=== PATIENT | female | born 1960 | race Caucasian/White ===

== ENCOUNTER 2023-01-22 20:33 | Emergency (ER) | payer SELFPAY ==
[2023-01-22 20:37] VITALS: BP 134/91; PULSE 64; TEMP 36.9; O2SAT 98
[2023-01-22] MEDS: Ondansetron ODT 4 MG Tablet 8 MG PO (21:15)
--- NOTE | 2023-01-22 21:15 | EDS_ITS ---
HPI History of Present Illness Chief Complaint: Back Informant: patient Narrative Narrative: Patient woke up with pain throughout her left back and her left shoulder 4 days ago. 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 She shows me that she does the same basic motions every time to try to get him in and out of the shower specially, she uses her left arm the most, helping to hold him up at times and move his legs around for him. She had no acute injury that she recalls but woke up in the morning 4 days ago with a severe pain that has been persistent despite taking NSAIDs, Tylenol. Especially in her shoulder, she has diffuse pain feels like it is on the inside, pain with moving overhead, forward flexion, and abduction. No numbness or tingling in her hand or pain radiating there, no pain radiating down the left lower or the right lower extremity. No saddle anesthesia, bowel or bladder dysfunction. Left shoulder pain patient has been having for couple months but it is significantly worse along with her back in the same period of time, the past 4 days or so. [facility] Medical History (Updated 01/22/23 @ 21:28 by Edith Barton) Hypothyroidism Medical History no medical history no medical history Home Medications cyclobenzaprine 10 mg tablet 10 mg PO TID PRN Muscle Spasm #21 TABLETS 01/22/23 [Rx Last Taken Unknown] meloxicam 15 mg tablet 15 mg PO DAILY #30 tabs 01/22/23 [Rx Last Taken Unknown] oxycodone-acetaminophen 5 mg-325 mg tablet 1 tab PO Q4H PRN Pain 3 days #15 TABLETS 01/22/23 [Rx Last Taken Unknown] Allergy/AdvReac Type Severity Reaction Status Date / Time No Known Allergies Allergy Verified 01/22/23 20:37 Surgical History (Updated 01/22/23 @ 21:28 by Edith Barton) History of cholecystectomy Social History Smoking Status: Never smoker ROS ROS ED Constitutional Constitutional ED: Denies chills or fever(s) Gastrointestinal Gastrointestinal: Denies abdominal pain, constipation, fecal incontinence, nausea or vomiting Genitourinary Genitourinary ED: Reports other Details: no urinary retention ; Denies abdominal discomfort or urinary incontinence Musculoskeletal Musculoskeletal: Reports as per HPI, back pain, extremity pain and muscle spasms; Denies neck pain Integumentary Denies rash or wounds Neurologic Neurologic: Denies headache(s), paresthesias or weakness EXAM Physical Exam Const Vital Signs: 01/22/23 20:37 Temperature 98.4 F Temperature Source Oral Pulse Rate 64 Blood Pressure 134/91 H Blood Pressure Mean 105 Pulse Ox 98 Oxygen Delivery Method Room Air Positive well nourished and well developed General Appearance ED: well developed and NAD HEENT Negative for trauma or tenderness Eyes PERRL and EOMs intact bilaterally Neck full ROM and supple GI normal to inspection, nondistended, normoactive bowel sounds, soft to palpation and non-tender Back/Spine normal to inspection Lumbar Spine / Lower Back: ROM limited and paraspinal muscle tenderness left (Lumbar the worst, also mid-upper thoracic and rhomboids area); Negative for lumbar spinal tenderness Extremity normal to inspection and no pedal edema Extremity Narrative: Left shoulder: Mildly tender acromioclavicular joint more so in the bicipital groove with a negative Yergason and positive speeds test. Limited abduction although she is able to go to 15 degrees before she stops due to pain, she does have tenderness subacromial. No deformities. When abducted able to internally externally rotate without difficulty, and able to flex at the elbow, but flexing forward at the shoulder gives her significant discomfort. Neuro oriented x3 and no sensory deficits noted Sensorium / Orientation: alert Motor Exam: strength 5/5 throughout and clonus absent Deep Tendon Reflexes: Rt Patellar (L4): 2+, Lt Patellar (L4): 2+, Rt Ankle (S1): 2+ and Lt Ankle (S1): 2+ Deep Tendon Reflexes Back: Rt Patellar (L4): 2+, Lt Patellar (L4): 2+, Rt Ankle (S1): 2+ and Lt Ankle (S1): 2+ Plantar Reflex: Downgoing: bilateral Psych mental status grossly normal and thought process normal Skin no rashes or lesions noted and no wounds MDM MDM MDM Narrative Medical decision making narrative: Patient woke up with the symptoms when she went to bed as she was okay, this is consistent with mostly musculoskeletal issues, with regards to the shoulder differential includes rotator cuff injury, calcific tendinitis which we did an x-ray to evaluate for, bursitis, bicipital tendinitis. Less likely thought to be dislocation given the history and exam. With regards to her back, palpating the tender areas since her into spasms, which she described having at home, her back locking up like a Charley horse. That is when she has the most pain. This is with movements. She does not have any spine tenderness or neurologic sympto ms to suggest nerve impingement. Therefore I do not think x-rays of the back are going to be helpful here. She is healthy does not have a history of cancer, does not have any neurologic or cauda equina symptoms. She was given prophylactic Zofran along with injections of morphine and Norflex here for her symptoms, she took some NSAIDs a little earlier so we skipped that. She is definitely improved. Two-view x-ray of the left shoulder were obtained and on my interpretation negative for any acute dislocation, fracture, calcific tendinitis. Radiology in agreement adding mild osteoarthritis present. She offered a sling but she declines, I will prescribe her something to use for pain as well as a muscle relaxer and advised to follow-up with orthopedics. Understands and is comfortable with that plan. Radiography Diagnostic Testing: Clinical Impression(s) from Imaging Studies Shoulder X-Ray 01/22/23 21:40 IMPRESSION: Mild left shoulder osteoarthritis. No fracture or dislocation. Electronically Signed: Silvestre Bedolla MD at 21:59 EDT , Discharge Plan Triage Chief Complaint: Back ED Provider: Sreekanth Ayala Dx/Rx/DC Orders Clinical Impression: Acute thoracic myofascial strain, Acute pain of left shoulder, Acute lumbar myofascial strain Instructions: ED Back Sprain/Strain, ED Shoulder Impingement Syndrome, ED Shoulder Pain, Uncertain Cause Prescriptions: New cyclobenzaprine [cyclobenzaprine] 10 mg tablet 10 mg PO TID PRN (Reason: Muscle Spasm) Qty: 21 0RF oxycodone-acetaminophen [oxycodone-acetaminophen] 5-325 mg tablet 1 tab PO Q4H PRN (Reason: Pain) 3 Days Qty: 15 0RF meloxicam 15 mg tablet 15 mg PO DAILY Qty: 30 0RF Primary Care Provider: Ward Mcgowan Referrals: Alber Stuart MD [Med Staff - Active Staff] - 1 Week if not improving
[2023-01-22] MEDS: Morphine 4 MG/ML Syringe IM (21:17)
[2023-01-22] MEDS: Orphenadrine 60 MG/2 ML Ampul IM (21:17)
[2023-01-22 21:31] VITALS: BMI 29.0
--- NOTE | 2023-01-22 21:40 | RAD_ITS ---
INDICATION: pain/injury EXAMINATION/TECHNIQUE: X-RAY - LEFT XR Shoulder Min 2 Views 2 VIEWS COMPARISON: None. FINDINGS: Left AC joint grossly intact. Glenohumeral joint space is preserved. Slight sclerosis at the lateral aspect of humeral head. Visualized portions of the thoracic spine show no acute abnormality. RAD/Shoulder min 2 Views IMPRESSION: Mild left shoulder osteoarthritis. No fracture or dislocation. Electronically Signed: Silvestre Bedolla MD at 21:59 EDT ,
[2023-01-22 22:00] VITALS: PULSE 80; RESP 14; O2SAT 99
== END 2023-01-22 22:52 | disposition home or self-care (01) ==
PROVIDERS: Emergency Provider Emergency Medicine; PCP Family Medicine; Visit Provider Emergency Medicine
DX: S29.019A Strain of muscle and tendon of unspecified wall of thorax, initial encounter (principal); S39.012A Strain of muscle, fascia and tendon of lower back, initial encounter; M25.512 Pain in left shoulder; X58.XXXA Exposure to other specified factors, initial encounter
CPT/HCPCS: 73030; 96372; 99282